=== PATIENT | male | born 1960 | race Caucasian/White ===

== ENCOUNTER → 2017-01-14 | Outpatient (CLI) | payer OTHER ==
--- NOTE | 2017-01-15 08:08 | XR ---
EXAMINATION TYPE: XR cervical spine comp DATE OF EXAM: 01/14/2017 1:19 PM COMPARISON: NONE HISTORY: Chronic pain TECHNIQUE: Four views are submitted. FINDINGS: The odontoid is intact. There are no compression deformities. The prevertebral soft tissue structur es are within normal limits. Moderate to severe degenerative disc disease at levels C4-T1 with marke d facet arthropathy. Foraminal encroachment at these levels. IMPRESSION: 1. Multilevel moderate to severe degenerative disc disease consider follow-up MRI. Multilevel foramin al encroachment noted.
== END | disposition home or self-care (01) ==
LOC: RADXRYALE 13:05
PROVIDERS: ATTEND Internal Medicine
DX: M50.30 Other cervical disc degeneration, unspecified cervical region (principal)
CPT/HCPCS: 72050

== ENCOUNTER → 2017-02-02 | Outpatient (CLI) | payer OTHER ==
--- NOTE | 2017-02-03 14:54 | MR ---
EXAMINATION TYPE: MR cervical spine wo con DATE OF EXAM: 02/02/2017 COMPARISON: NONE HISTORY: Neck pain TECHNIQUE: Multiplanar, multisequence images of the cervical spine were acquired. FINDINGS: C2-C3: No evidence for degenerative disc disease. No disc bulge/herniation or protrusion. No Canal stenosis. Foramina are patent bilaterally. C3-C4: No evidence for degenerative disc disease. No disc bulge/herniation or protrusion. No Canal stenosis. Foramina are patent bilaterally. C4-C5: Minimal disc bulge is present with anterior thecal sac contact. No AP spinal canal stenosis pr esent. Neural foramen are patent. C5-C6: Mild disc bulge is present slightly greater to the right paracentral region. This is anterior thecal sac flattening. No AP spinal canal stenosis present. Uncovertebral joint hypertrophy and facet hypertrophy is contributing to bilateral moderate foraminal narrowing greater on the left. C6-C7: No evidence for degenerative disc disease. No disc bulge/herniation or protrusion. No Canal stenosis. Foramina are patent bilaterally. C7-T1: No evidence for degenerative disc disease. No disc bulge/herniation or protrusion. No Canal stenosis. Foramina are patent bilaterally. Cervical segments are intact. There is normal alignment. Cervical spinal cord is of normal signal. Craniovertebral junction relationships are within normal limits. IMPRESSION: 1. Mild disc bulging C5-6 and to lesser degree C4-5. No AP spinal stenosis is present. 2. Moderate foraminal narrowing C5-6
== END | disposition home or self-care (01) ==
LOC: RADMRIMAIN 12:47
PROVIDERS: ATTEND Internal Medicine
DX: M99.71 Connective tissue and disc stenosis of intervertebral foramina of cervical region (principal); M50.222 Other cervical disc displacement at C5-C6 level
CPT/HCPCS: 72141

== ENCOUNTER → 2020-08-08 | Outpatient (CLI) | payer OTHER ==
--- NOTE | 2020-08-08 15:48 | XR ---
EXAMINATION TYPE: XR cervical spine comp DATE OF EXAM: 08/08/2020 COMPARISON: 01/14/2017 HISTORY: Pain TECHNIQUE: Four views are submitted. FINDINGS: The odontoid is intact. There are no compression deformities. The prevertebral soft tissue structures are within normal limits. Moderate to severe degenerative disc disease at levels C4-T1 with marked f acet arthropathy. Foraminal encroachment at these levels. There is a anterolisthesis of C4 relative t o C5 noted on today's exam. IMPRESSION: 1. There is multilevel degenerative disc disease most marked at C5-C6. Multilevel foraminal encroachm ent suggested. There appears to be an anterolisthesis of C4 on C5 on today's exam. There is facet art hropathy.
== END | disposition home or self-care (01) ==
LOC: RADXRYALE 14:54
PROVIDERS: ATTEND Nurse Practitioner Family
DX: M43.12 Spondylolisthesis, cervical region (principal); M50.322 Other cervical disc degeneration at C5-C6 level; M47.812 Spondylosis without myelopathy or radiculopathy, cervical region
CPT/HCPCS: 72050

== ENCOUNTER → 2022-07-24 | Outpatient (CLI) | payer OTHER ==
--- NOTE | 2022-07-25 03:11 | MR ---
EXAMINATION TYPE: MR brain wo/w con DATE OF EXAM: 07/24/2022 COMPARISON: None HISTORY: Visual loss of right eye, vascular disease, hypertension CONTRAST: Standard multiplanar, multisequence MRI departmental protocol images were obtained without contrast a nd with 7 mL intravenous Gadavist gadolinium contrast. Multiplanar multiecho imaging of the brain performed without and with the IV contrast. The ventricles have normal size. There is no mass effect or midline shift. No sign of intracranial he morrhage. There is minimal cerebral cortical atrophy. Corpus callosum is intact. The sella turcica ap pears normal. The brainstem is intact. No evidence of orbital mass. No evidence of an acute infarct. Precontrast images show no pathologic enhancement. There is normal enhancement of the venous sinuses. IMPRESSION: Negative MRI scan of the brain. No evidence of demyelinating disease.
== END | disposition home or self-care (01) ==
LOC: RADMRIMAIN 20:45
PROVIDERS: ATTEND Nurse Practitioner Family
DX: I10 Essential (primary) hypertension (principal); I73.9 Peripheral vascular disease, unspecified; H53.131 Sudden visual loss, right eye
CPT/HCPCS: 70553; A9585